=== PATIENT | female | born 1985 | race African-American/Black ===

== ENCOUNTER 2018-08-18 01:44 | Emergency (ER) | payer BC, OTHER ==
[~2018-08-18] VITALS: Ht 165.1 cm; Wt 81.7 kg
[2018-08-18 01:48] VITALS: Ht 165.1 cm; Wt 81.7 kg
[2018-08-18] MEDS ORDERED: SOD CHLORIDE 0.9% 1,000 ML IV STA (02:38)
[2018-08-18] MEDS ORDERED: KETOROLAC 30 MG INJ IV STA (02:38)
[2018-08-18] MEDS ORDERED: ONDANSETRON 4 MG INJ IV STA (02:38)
[2018-08-18] MEDS ORDERED: morphine 4 MG/ML VIAL IV STA (02:38)
--- NOTE | 2018-08-18 05:41 | ERD ---
ER Documentation Chief Complaint Chief Complaint right flank pain x 4 days HPI Is a 32-year female right flank pain for 4 days. Pain is mild to moderate intensity no exacerbating factors. No fevers no chills. No nausea no vomiting. No other current complaints. ROS All systems reviewed and are negative except as per history of present illness. Allergies Allergies: Coded Allergies: No Known Drug Allergies (Verified Allergy, Unknown, 08/18/18) PMhx/Soc History of Surgery: No Anesthesia Reaction: No Hx Neurological Disorder: No Hx Respiratory Disorders: No Hx Cardiac Disorders: No Hx Psychiatric Problems: No Hx Miscellaneous Medical Probl: No Hx Alcohol Use: Yes (rarely) Hx Substance Use: Yes (cocaine and marijuana last used 08/12/2018) Hx Tobacco Use: Yes ("sometimes") Smoking Status: Current some day smoker Physical Exam Vitals Vital Signs Date Temp Pulse Resp B/P (MAP) Pulse Ox O2 O2 Flow FiO2 Time Delivery Rate 08/18/18 85 16 145/98 97 Room Air 04:30 (114) 08/18/18 82 17 159/103 99 Room Air 04:00 (121) 08/18/18 73 18 173/107 100 Room Air 03:01 (129) 08/18/18 99.4 84 18 204/99 98 01:48 (134) Physical Exam Const: No acute distress Head: Atraumatic Eyes: Normal Conjunctiva ENT: Normal External Ears, Nose and Mouth. Neck: Full range of motion. No meningismus. Resp: Clear to auscultation bilaterally Cardio: Regular rate and rhythm, no murmurs Abd: Soft, non tender, non distended. Normal bowel sounds Skin: No petechiae or rashes Back: No midline or flank tenderness Ext: No cyanosis, or edema Neur: Awake and alert Psych: Normal Mood and Affect Result Diagram: 08/18/18 0247 08/18/18 0247 Results 24 hrs Laboratory Tests Test 08/18/18 02:47 08/18/18 02:57 White Blood Count 6.7 10^3/ul Red Blood Count 3.70 10^6/ul Hemoglobin 10.1 g/dl Hematocrit 32.8 % Mean Corpuscular Volume 88.6 fl Mean Corpuscular Hemoglobin 27.3 pg Mean Corpuscular Hemoglobin Concent 30.8 g/dl Red Cell Distribution Width 14.3 % Platelet Count 319 10^3/UL Mean Platelet Volume 8.8 fl Immature Granulocytes % 0.200 % Neutrophils % 56.7 % Lymphocytes % 35.3 % Monocytes % 6.9 % Eosinophils % 0.3 % Basophils % 0.6 % Nucleated Red Blood Cells % 0.0 /100WBC Immature Granulocytes # 0.010 10^3/ul Neutrophils # 3.8 10^3/ul Lymphocytes # 2.4 10^3/ul Monocytes # 0.5 10^3/ul Eosinophils # 0.0 10^3/ul Basophils # 0.0 10^3/ul Nucleated Red Blood Cells # 0.0 10^3/ul Urine Color YELLOW Urine Clarity CLEAR Urine pH 6.0 Urine Specific [place] 1.016 Urine Ketones NEGATIVE mg/dL Urine Nitrite NEGATIVE mg/dL Urine Bilirubin NEGATIVE mg/dL Urine Urobilinogen NEGATIVE mg/dL Urine Leukocyte Esterase NEGATIVE Tom/ul Urine Hemoglobin NEGATIVE mg/dL Urine Glucose NEGATIVE mg/dL Urine Total Protein NEGATIVE mg/dl Sodium Level 142 mmol/L Potassium Level 3.2 mmol/L Chloride Level 101 mmol/L Carbon Dioxide Level 31 mmol/L Anion Gap 10 Blood Urea Nitrogen 12 mg/dl Creatinine 0.86 mg/dl Est Glomerular Filtrat Rate mL/min > 60 mL/min Glucose Level 149 mg/dl Calcium Level 8.6 mg/dl Total Bilirubin 0.2 mg/dl Direct Bilirubin 0.00 mg/dl Indirect Bilirubin 0.2 mg/dl Aspartate Amino Transf (AST/SGOT) 19 IU/L Alanine Aminotransferase (ALT/SGPT) 11 IU/L Alkaline Phosphatase 60 IU/L Total Protein 7.9 g/dl Albumin 3.9 g/dl Globulin 4.00 g/dl Albumin/Globulin Ratio 0.97 Lipase 51 U/L POC Beta HCG, Qualitative NEGATIVE Current Medications Medications Dose Sig/Eliana Start Time Status Last (Trade) Ordered Route PRN Stop Time Admin Dose Reason Admin Sodium 1,000 ml @ Q1H STAT 08/18/18 DC 08/18/18 Chloride 1,000 mls/hr IV 02:38 02:52 08/18/18 03:37 Morphine 4 mg ONCE STAT 08/18/18 DC 08/18/18 Sulfate IV 02:38 03:19 (morphine) 08/18/18 02:39 Ondansetron 4 mg ONCE STAT 08/18/18 DC 08/18/18 HCl (Zofran IV 02:38 03:18 Inj) 08/18/18 02:39 Ketorolac 30 mg ONCE STAT 08/18/18 DC 08/18/18 Tromethamine IV 02:38 03:19 (Toradol) 08/18/18 02:39 Procedures/MDM Patient's gastrointestinal symptoms have stabilized while in the department. No evidence of severe dehydration, sepsis, or surgical abdomen. Extensive discussion with family and patient that occult disease cannot be ruled out. 8 hour recheck for repeat abdominal exam is planned. Symptomology is con sistent with renal colic which is cooperating on the CAT scan. At this point clinically stable for outpatient management will be discharged home. Departure Diagnosis: Primary Impression: Flank pain Condition: Stable LUZ CARDENAS Aug 18, 2018 05:41
[2018-08-18] MEDS ORDERED: CIPR500T4 PO (05:44)
[2018-08-18] MEDS ORDERED: TRAM50TA2 PO (05:44)
[2018-08-18 05:52] VITALS: BP 156/91; PULSE 73; RESP 15
== END 2018-08-18 05:58 | disposition home or self-care (01) ==
LOC: E/R 01:44
DX: R10.9 Unspecified abdominal pain (principal); F17.210 Nicotine dependence, cigarettes, uncomplicated; R40.2142 Coma scale, eyes open, spontaneous, at arrival to emergency department; R40.2252 Coma scale, best verbal response, oriented, at arrival to emergency department; R40.2362 Coma scale, best motor response, obeys commands, at arrival to emergency department
CPT/HCPCS: 36415; 74176; 80053; 81003; 81025; 83690; 85025; 87086; 96361; 96374; 96375; 99285; J1885; J2270; J2405; J7030

== ENCOUNTER 2018-08-30 00:44 | Emergency (ER) | payer BC ==
[~2018-08-30] VITALS: Ht 165.1 cm; Wt 82.9 kg
[~2018-08-30 00:44] MED LIST: CIPR500T4 PO; TRAM50TA2 PO
[2018-08-30 00:54] VITALS: Ht 165.1 cm; Wt 82.9 kg
--- NOTE | 2018-08-30 04:01 | ERD ---
ER Documentation Chief Complaint Chief Complaint Central non-radiating CP X 45 minutes, Diarrhea, back pain X 1 day HPI 33-year-old female presenting with central pressure-like chest pain that started at 10:30 PM. Pain was nonexertional. Started at rest. No associated nausea, vomiting, diaphoresis, shortness of breath. No recent illnesses. No cough or hemoptysis. Her pain has improved currently. No alleviating or exacerbating factors. She will call she also complains of some diarrhea and left-sided back pain that is aching, nonradiating, 5 out of 10, with no other associated symptoms. Denies dysuria or hematuria. ROS All systems reviewed and are negative except as per history of present illness. Medications Home Meds Discontinued Scripts Tramadol HCl (Tramadol HCl) 50 Mg Tablet, 50 MG PO Q4 PRN for PAIN, #20 TAB Prov:LUZ CARDENAS 08/18/18 Ciprofloxacin Hcl* (Ciprofloxacin Hcl*) 500 Mg Tablet, 500 MG PO BID for 5 Days, TAB Prov:LUZ CARDENAS 08/18/18 Allergies Allergies: Coded Allergies: No Known Drug Allergies (Verified Allergy, Unknown, 08/30/18) PMhx/Soc History of Surgery: No Anesthesia Reaction: No Hx Neurological Disorder: No Hx Respiratory Disorders: No Hx Cardiac Disorders: No Hx Psychiatric Problems: No Hx Miscellaneous Medical Probl: Yes (Kidney stones) Hx Alcohol Use: Yes (rarely) Hx Substance Use: Yes (cocaine and marijuana last used 08/12/2018) Hx Tobacco Use: Yes ("sometimes") Smoking Status: Current some day smoker FmHx Family History: coronary disease; No diabetes Physical Exam Vitals Vital Signs Date Temp Pulse Resp B/P (MAP) Pulse Ox O2 O2 Flow FiO2 Time Delivery Rate 08/30/18 88 16 122/80 99 Room Air 02:41 (94) 08/30/18 99.1 84 18 152/80 100 00:54 (104) Physical Exam Const: No acute distress Head: Atraumatic Eyes: Normal Conjunctiva ENT: Normal External Ears, Nose and Mouth. Neck: Full range of motion. No meningismus. Resp: Clear to auscultation bilaterally Cardio: Regular rate and rhythm, no murmurs. 2+ distal pulses Abd: Soft, non tender, non distended. Normal bowel sounds Skin: No petechiae or rashes Back: No midline or flank tenderness Ext: No cyanosis, or edema Neur: Awake and alert Psych: Normal Mood and Affect Result Diagram: 08/30/188 08/30/18 0238 Results 24 hrs Laboratory Tests Test 08/30/18 02:38 08/30/18 03:26 White Blood Count 4.8 10^3/ul Red Blood Count 3.54 10^6/ul Hemoglobin 9.8 g/dl Hematocrit 31.4 % Mean Corpuscular Volume 88.7 fl Mean Corpuscular Hemoglobin 27.7 pg Mean Corpuscular Hemoglobin Concent 31.2 g/dl Red Cell Distribution Width 14.9 % Platelet Count 276 10^3/UL Mean Platelet Volume 9.4 fl Immature Granulocytes % 0.200 % Neutrophils % 40.3 % Lymphocytes % 41.9 % Monocytes % 14.7 % Eosinophils % 2.3 % Basophils % 0.6 % Nucleated Red Blood Cells % 0.0 /100WBC Immature Granulocytes # 0.010 10^3/ul Neutrophils # 2.0 10^3/ul Lymphocytes # 2.0 10^3/ul Monocytes # 0.7 10^3/ul Eosinophils # 0.1 10^3/ul Basophils # 0.0 10^3/ul Nucleated Red Blood Cells # 0.0 10^3/ul Sodium Level 141 mmol/L Potassium Level 3.8 mmol/L Chloride Level 105 mmol/L Carbon Dioxide Level 31 mmol/L Anion Gap 5 Blood Urea Nitrogen 22 mg/dl Creatinine 1.18 mg/dl Est Glomerular Filtrat Rate mL/min > 60 mL/min Glucose Level 81 mg/dl Calcium Level 8.2 mg/dl Troponin I < 0.012 ng/ml Bedside Urine pH (LAB) 5.5 Bedside Urine Protein (LAB) Negative Bedside Urine Glucose (UA) Negative Bedside Urine Ketones (LAB) Negative Bedside Urine Blood Negative Bedside Urine Nitrite (LAB) Negative Bedside Urine Leukocyte Esterase (L Negative POC Beta HCG, Qualitative NEGATIVE Procedures/MDM EMERGENT LABS AND DIAGNOSTIC STUDIES: Lab Results above were reviewed and interpreted by me. CBC: Anemia, chronic. no evidence of infection BMP: Mild elevation of BUN and creatinine from baseline, consistent with acute r enal insufficiency. no e/o clinically significant electrolyte abnormality severe acidosis, alkalosis, renal failure, diabetic ketoacidosis Troponin within normal limits, not indicative of cardiac ischemia test negative Urine dip negative 12-lead EKG was interpreted by Carter Dinh MD: Normal Sinus Rhythm Normal axis Normal intervals No acute ST or T wave changes suggestive of acute ischemia or STEMI. Radiology Results as interpreted by Radiology below were reviewed by Prateek Dinh MD: Chest x-ray shows no acute abnormalities Initial Nursing notes reviewed. Previous Medical Records requested via the Electronic Health Record. EMERGENCY DEPARTMENT COURSE / MEDICAL DECISION MAKING: Patient is presenting with central chest pain now improved. Vitals are unremarkable and stable. I considered pulmonary embolism, aortic dissection, pneumothorax among other diagnoses. Evaluation for acute coronary syndrome was performed. The HEART score was utilized for risk stratification and found to be <3. Based on this evaluation the patient's risk of major adverse cardiac events is <1%. Shared decision making occurred with patient and the decision has been made to discharge the patient for outpatient evaluation within 72 hours. Patient instructed to arrange follow up with PCP in the next 2 days and return to the ED for any new or worsening symptoms. Patient's blood pressure was elevated (>120/80) but appears stable without evidence of hypertension emergency or urgency. The patient was counseled about the risks of hypertension and urged to pursue outpatient monitoring and therapy within a week with their primary care physician. Departure Diagnosis: Primary Impression: Chest pain Chest pain type: unspecified Qualified Codes: R07.9 - Chest pain, unspecified Condition: Stable Patient Instructions: Chest Pain, Uncertain Cause Referrals: NO PRIMARY,CARE PHYSICIAN (PCP) Additional Instructions: Return to the ER for any worsening symptoms. Follow-up with your primary care doctor tomorrow. DAWN DINH MD Aug 30, 2018 04:01
[2018-08-30 04:26] VITALS: BP 128/80; PULSE 72; RESP 16
== END 2018-08-30 04:27 | disposition home or self-care (01) ==
LOC: E/R 00:44
DX: R07.89 Other chest pain (principal); F17.210 Nicotine dependence, cigarettes, uncomplicated
CPT/HCPCS: 36415; 71045; 80048; 81003; 81025; 84484; 85025; 93005